=== PATIENT | female | born 1930 | race Caucasian/White ===

== ENCOUNTER 2018-01-09 13:00 | Inpatient (IN) | payer OTHER ==
[~2018-01-09] VITALS: Ht 152.4 cm; Wt 55.3 kg
[2018-01-10] MEDS ORDERED: ZANTAC150 MG PO (07:57)
[2018-01-10] MEDS ORDERED: FOSAMAX PLUS D1 EACH PO (07:57)
[2018-01-10] MEDS ORDERED: COREG CR80 MG PO (07:58)
[2018-01-10] MEDS ORDERED: CELEXA20 MG PO (07:58)
[2018-01-10] MEDS ORDERED: FOLIC ACID1 MG PO (07:59)
[2018-01-10] MEDS ORDERED: ZOCOR5 MG PO (07:59)
[2018-01-10] MEDS ORDERED: ASPIR 8181 MG PO (07:59)
[2018-01-10] MEDS ORDERED: VITAMIN B-12100 MCG PO (08:00)
[2018-01-10] MEDS ORDERED: DILTIAZEM 24HR120 MG PO (08:00)
[2018-01-10] MEDS ORDERED: [UNRECOGNIZED DRUG - OTHER] (08:01)
[2018-01-18] MEDS ORDERED: TYLENOL ARTHRI650 MG PO (10:24)
== END 2018-01-18 11:46 | disposition home or self-care (01) | DRG 334 ==
LOC: SURH 13:00 → O/R 01-16 06:47 → SURG 01-16 06:47 → SURH 01-16 08:45 → SURG 01-16 15:04
PROVIDERS: Surgery
PROC: 0DQR0ZZ Repair Anal Sphincter, Open Approach (ICD-10-PCS; 2018-01-16)
PROC: 3E0T3BZ Introduction of Anesthetic Agent into Peripheral Nerves and Plexi, Percutaneous Approach (ICD-10-PCS; 2018-01-16)
PROC: 0DTP0ZZ Resection of Rectum, Open Approach (ICD-10-PCS; principal; 2018-01-16 08:45)
DX: K62.3 Rectal prolapse (principal); R15.9 Full incontinence of feces; I11.9 Hypertensive heart disease without heart failure; F03.90 Unspecified dementia, unspecified severity, without behavioral disturbance, psychotic disturbance, mood disturbance, and anxiety